=== PATIENT | male | born 1965 | race Caucasian/White ===

== ENCOUNTER 2019-02-18 09:12 | Emergency (ER) | payer SELFPAY ==
[~2019-02-18] VITALS: Ht 165 cm; Wt 65.0 kg
[2019-02-18 09:38] LABS: BASO % 0.3 % (0.0-2.0); EOS % 0.6 % (0-4.0); GRAN # 4.4 (1.4-6.5); GRAN % 65.5 % (42.2-75.2); HEMATOCRIT 46.8 % (42.0-52.0); HEMOGLOBIN 16.2 g/dl (13.5-18.0); LYMPH # 1.3 (1.2-3.4); LYMPH % 19.5 % (20.0-51.0); MEAN CELL VOLUME 88 fl (80.0-100.0); MEAN CORPUSCULAR HEMOGLOBIN 31 pg (27.0-31.0); MEAN CORPUSCULAR HGB CONC 35 g/dl (33.0-37.0); MEAN PLATELET VOLUME 10.2 fl (7.4-10.4); MONO # 0.9 (0.1-0.6); MONO % 13.8 % (1.7-9.3); PLATELET COUNT 226 K/mm3 (130-400); RED BLOOD COUNT 5.31 M/mm3 (4.20-5.60); REDCELL DISTRIBUTION WIDTH-CV 13.3 % (11.5-14.5)
[2019-02-18 09:51] LABS: ALBUMIN 4.4 gm/dL (3.5-5.0); BILIRUBIN,TOTAL 0.5 mg/dL (0.0-1.0); CALCIUM 8.8 mg/dL (8.4-10.2); CREATININE, serum 0.95 (0.66-1.25); POTASSIUM 3.7 mmol/L (3.4-5.0); TOTAL PROTEIN 7.7 gm/dL (6.4-8.2)
[2019-02-18 10:02] LABS: COLLECTION METHOD CLEAN CATCH
[2019-02-18 10:15] LABS: MUCOUS Present /lpf; PH 5 (5-8); SQUAMOUS EPITHELIAL 0-2 /hpf; URINE APPEARANCE Hazy; URINE BACTERIA None Seen /hpf; URINE BILIRUBIN Negative (NEGATIVE); URINE BLOOD 1+ (NEGATIVE); URINE COLOR Amber; URINE GLUCOSE Negative (NEGATIVE); URINE KETONE Trace (NEGATIVE); URINE LEUKOCYTE ESTERASE 1+ (NEGATIVE); URINE NITRATE Negative (NEGATIVE); URINE PROTEIN(semi-quant) 1+ (NEGATIVE); URINE UROBILINOGEN Negative (NEGATIVE)
[2019-02-18] MEDS ORDERED: FLAGYL500 MG PO ×2 (11:10→11:20)
[2019-02-18] MEDS ORDERED: AMOXICILLIN 25250 MG PO (11:11)
[2019-02-18] MEDS ORDERED: CIPRO 500MG TA500 MG PO (11:20)
[2019-02-18] MEDS ORDERED: NORCO 325 MG-51 TAB PO (11:21)
[2019-02-18 12:31] VITALS: BP 122/86; PULSE 69; TEMP 99.2
== END 2019-02-18 12:32 | disposition home or self-care (01) ==
LOC: COL.ER 09:12
PROVIDERS: Emergency Medicine
DX: K57.32 Diverticulitis of large intestine without perforation or abscess without bleeding (principal)
CPT/HCPCS: J1170; J1885; J2405; J7030; Q9967